=== PATIENT | male | born 1960 | race Caucasian/White ===

== ENCOUNTER 2018-01-25 17:38 | Inpatient (IN) ==
[2018-01-25 18:33] LABS: Basophils # 0.1 K/mcL (0.0-0.2); Basophils % 0.7 %; Eosinophils # 0.1 K/mcL (0.0-0.6); Eosinophils % 0.8 %; Hematocrit 50.9 % (37.5-50.1); Hemoglobin 17.2 g/dL (12.9-16.9); Immature Granulocytes % 1.8 % (0-4); Lymphocytes # 2.1 K/mcL (0.6-4.6); Lymphocytes % 12.1 %; Mean Corpuscular HGB Conc 33.8 g/dL (31.6-35.5); Mean Corpuscular Hemoglobin 31.3 pg (28.0-33.3); Mean Corpuscular Volume 92.5 fL (83.0-100.0); Monocytes % 5.5 %; Neutrophils # 13.7 K/mcL (1.6-8.9); Nucleated Red Blood Cells 0.1 /100 WBC (0); Platelet Count 288 K/mcL (140-400); Red Cell Distribution Width 13.2 % (11.5-14.5); Segmented Neutrophils % 79.1 %
[2018-01-25 18:40] LABS: BUN/Creatinine Ratio 15 (6-26); Blood Urea Nitrogen 9 mg/dL (6-20); Calcium 9.7 mg/dL (8.6-10.3); Carbon Dioxide 26 mEq/L (23-29); Chloride 99 mEq/L (98-107); Glucose 174 mg/dL (70-105); Osmolality,Calculated 277 (280-300); Sodium 132 mEq/L (136-145); eGFR For African Americans > 60 (> 60); eGFR For Non-African Americans > 60 (> 60)
--- NOTE | 2018-01-25 19:32 | Emergency Department Note ---
Disposition Clinical Impression: Cellulitis of left upper extremity, Abscess of left upper extremity Leukocytosis Qualifiers: Leukocytosis type: unspecified Qualified Code(s): D72.829 - Elevated white blood cell count, unspecified Disposition: Admitted As Inpatient Condition: Good Referrals: Martha Harrell CNP [Primary Care Provider] - Shey Longoria [Family Provider] - Forms: ED Satisfaction Letter Time of Disposition: 22:11 General Adult HPI - General Chief complaint: ED Skin/Abscess/Foreign Body Stated complaint: Infection Time Seen by Provider: 01/25/18 19:28 Source: patient Mode of arrival: ambulatory Limitations: no limitations Nursing Notes Reviewed: Yes Vital Signs Reviewed: Yes - History of Present Illness HPI Narrative: Patient is a 57-year-old male with past medical history of COPD, previous right upper extremity necrotizing fasciitis with subsequent surgical intervention. He also admits to a history of IV heroin use. He presents today due to concern for left M impaction. This has been present for several days, pain mainly in the left forearm but denies any pain with movement of his wrist or fingers. Denies any numbness, tingling, weakness. He does admit to injecting heroin in that area. The patient was seen at an outside facility and was given Rocephin. The patient refused to be admitted at that facility and came here for admission. He denies any other allergies, any other intervention. Denies any other fever, abdominal pain, chest pain, shortness of breath. He does admit to nausea but no vomiting. Pain Scale: 9 - Related Data Home Medications Medication Instructions Recorded Confirmed Albuterol Sulfate [Albuterol 2 puff IH Q4H PRN 01/25/18 01/25/18 Inhaler] Atorvastatin Calcium [Lipitor] 20 mg PO HS 01/25/18 Buprenorphine HCl/Naloxone HCl 1 film SL TID 01/25/18 01/25/18 [Suboxone 8 mg-2 mg Sl Film] Canagliflozin [Invokana] 100 mg PO DAILY 01/25/18 01/25/18 Fluticasone/Salmeterol [Advair Hfa 2 puff IH BID 01/25/18 01/25/18 230-21 Mcg Inhaler] Gabapentin [Neurontin] 1,200 mg PO TID 01/25/18 01/25/18 Ibuprofen [Motrin] 800 mg PO Q8H PRN 01/25/18 01/25/18 Insulin ASPART [NovoLOG] 0 unit SQ TIDWM PRN 01/25/18 01/25/18 Insulin Glargine [Lantus] 30 - 65 unit SQ HS 01/25/18 01/25/18 Levothyroxine [Synthroid] 50 mcg PO 0630 01/25/18 01/25/18 Mupirocin [Bactroban Oint] 1 appl TP TID 01/25/18 01/25/18 Sulfamethoxazole/Trimeth DS 1 tab PO BID 01/25/18 01/25/18 [Bactrim Ds] Tiotropium [Spiriva] 18 mcg IH DAILY 01/25/18 01/25/18 Tramadol HCl [Ultram] 50 mg PO QID PRN 01/25/18 01/25/18 Allergies Allergy/AdvReac Type Severity Reaction Status Date / Time No Known Allergies Allergy Verified 01/25/18 17:53 All systems ED: reviewed and negative except as stated. Constitutional: Denies: fever Cardiovascular: Denies: chest pain Respiratory: Denies: cough, dyspnea Gastrointestinal: Reports: nausea. Denies: abdominal pain, vomiting, diarrhea, constipation Genitourinary: Denies: urgency, dysuria, frequency Musculoskeletal: Denies: back pain, neck pain Integumentary: Reports: other Neurological: Denies: weakness, numbness, paresthesias Past Medical History - Past Medical History Attestation: Yes The following information was validated with the patient. Source: patient Medical history: Reports: asthma, COPD, CVA, diabetes, hyperlipidemia, hypertension, myocardial infarction - Social History Smoking Status: Current every day smoker Drug use: Reports: IV Drug Use Physical Exam - General Limitations: no limitations General appearance: alert, in no apparent distress - Head Head exam: atraumatic, normocephalic, normal inspection - Eye Eye exam: Present: normal appearance, PERRL, EOMI - ENT ENT exam: normal exam, normal oropharynx, mucous membranes moist - Neck Neck exam: Present: normal inspection, full ROM, trachea midline - Chest Chest inspection: Present: normal inspection, symmetric chest wall rise - Respiratory Respiratory exam: Present: normal lung sounds bilaterally - Cardiovascular Cardiovascular exam: Present: regular rate, normal rhythm, normal heart sounds - Abdominal Exam Abdominal exam: Present: soft, Non-Tender. Absent: tenderness, distention, guarding, rebound, rigidity - Extremities Exam Extremities exam: Present: full ROM, other (Significant erythema of left forearm from middle forearm to almost elbow on the dorsal aspect of the left forearm. Significant edema proximally 5 x 5 cm on the dorsal aspect of the left forearm concerning for possible abscess.). Absent: pedal edema - Neurological Exam Neurological exam: Present: alert, oriented X3. Absent: motor sensory deficit - Psychiatric Psychiatric exam: Present: normal affect, normal mood - Skin Skin exam: Present: warm, dry, normal color, other (see extremity section above) Course Course Narrative: Patient currently afebrile. The rest of the vitals were within normal limits. Physical exam shows: Significant erythema of left forearm from middle forearm to almost elbow on the dorsal aspect of the left forearm. Significant edema proximally 5 x 5 cm on the dorsal aspect of the left forearm concerning for possible abscess. There is no pain with passive flexion or extension of the left breast, movement of the digits of the left hand. No concern currently for tenosynovitis. Patient has an elevated white blood cell count of 17. Cultures of been drawn. He received Rocephin at outside facility. We will give the patient vancomycin empirically as well here. We will perform CT of the left upper extremity with contrast for further assessment and then admit for further care. 22:00 1. Rim enhancing fluid collection along the proximal to mid forearm along its radial aspect measuring 1.1 x 3.0 x 4.5 cm compatible with abscess. Surrounding soft tissue edema consistent with cellulitis. 2. No acute osseous abnormality. Abscess is fairly deep on clinical exam. Too deep at this time to incise and drain the abscess in the ED. We will admit on vancomycin to hospitalist for further care Upper Extremity CT 01/25/18 20:04 IMPRESSION: 1. Rim enhancing fluid collection along the proximal to mid forearm along its radial aspect measuring 1.1 x 3.0 x 4.5 cm compatible with abscess. Surrounding soft tissue edema consistent with cellulitis. 2. No acute osseous abnormality. D/ / Hugo Armendariz MD / Hugo Armendariz MD Interpreting Provider: Hugo Armendariz MD Vital Signs Temperature 99.1 F 01/25/18 17:47 Pulse Rate 87 01/25/18 17:47 Respiratory Rate 18 01/25/18 17:47 Blood Pressure 0/0 01/25/18 17:47 O2 Sat by Pulse Oximetry 96 01/25/18 17:47 Temperature 99.1 F 01/25/18 17:47 Pulse Rate 87 01/25/18 17:47 Respiratory Rate 18 01/25/18 17:47 Blood Pressure 0/0 01/25/18 17:47 O2 Sat by Pulse Oximetry 96 01/25/18 17:47 Oxygen Delivery Oxygen Delivery Room Air Medical Decision Making - MDM Narrative Medical decision making narrative: Patient currently afebrile. The rest of the vitals were within normal limits. Physical exam shows: Significant erythema of left forearm from middle forearm to almost elbow on the dorsal aspect of the left forearm. Significant edema proximally 5 x 5 cm on the dorsal aspect of the left forearm concerning for possible abscess. There is no pain with passive flexion or extension of the left breast, movement of the digits of the left hand. No concern currently for tenosynovitis. Patient has an elevated white blood cell count of 17. Cultures of been drawn. He received Rocephin at outside facility. We will give the patient vancomycin empirically as well here. We will perform CT of the left upper extremity with contrast for further assessment and then admit for further care. 22:00 1. Rim enhancing fluid collection along the proximal to mid forearm along its radial aspect measuring 1.1 x 3.0 x 4.5 cm compatible with abscess. Surrounding soft tissue edema consistent with cellulitis. 2. No acute osseous abnormality. Abscess is fairly deep on clinical exam. Too deep at this time to incise and drain the abscess in the ED. Recommend surgical consult once admitted. We will admit on vancomycin to hospitalist for further care This documentation is done with the assistance of Dragon dictation. Despite efforts made to ensure accuracy, there may be inaccuracies in all around patternmaker or spelling and typographical errors. I examined this patient and my medical decision-making was reviewed with the Resident Physician. I agree with the documented findings, disposition and treatment plan as described except to the extent set forth below. Patient was seen and evaluated on arrival with Dr. michelle and myself, I agree with his evaluation management plan, supervised the care the patient's stay. Patient presents today with infection on the right arm. He shot up some heroin. And now the arm is swollen. He has no pain in the forearm with flexion extension of the wrist or the elbow. No tenderness with internal and external rotation the elbow. He does have a large area that is indurated, and also spreads with cellulitis of the forearm. Recommend CT the area start him on vancomycin and get labs on him and he will most likely need admission. He is in agreement with this plan. - Medical Records Medical records reviewed: Yes I reviewed the patient's medical records. - Lab Data Lab results reviewed: Yes I reviewed the patient's lab results. Result diagrams: 01/25/18 18:03 01/25/18 18:03 Lab Results 01/25/18 01/25/18 01/25/18 Range/Units 18:03 18:03 18:03 WBC 17.4 H (4.3-11.1) K/mcL RBC 5.50 (4.19-5.50) M/mcL Hgb 17.2 H (12.9-16.9) g/dL Hct 50.9 H (37.5-50.1) % MCV 92.5 (83.0-100.0) fL MCH 31.3 (28.0-33.3) pg MCHC 33.8 (31.6-35.5) g/dL RDW 13.2 (11.5-14.5) % Plt Count 288 (140-400) K/mcL MPV 9.0 L (9.4-12.4) fL Immature Gran % 1.8 (0-4) % Seg Neutrophils % 79.1 % Lymphocytes % 12.1 % Monocytes % 5.5 % Eosinophils % 0.8 % Basophils % 0.7 % Neutrophils # 13.7 H (1.6-8.9) K/mcL Lymphocytes # 2.1 (0.6-4.6) K/mcL Monocytes # 1.0 (0.0-1.3) K/mcL Eosinophils # 0.1 (0.0-0.6) K/mcL Basophils # 0.1 (0.0-0.2) K/mcL Nucleated RBCs/100 WBC 0.1 H (0) /100 WBC Sodium 132 L (136-145) mEq/L Potassium 4.0 (3.5-5.1) mEq/L Chloride 99 (98-107) mEq/L Carbon Dioxide 26 (23-29) mEq/L BUN 9 (6-20) mg/dL Creatinine 0.59 L (0.70-1.30) mg/dL Est GFR ( Amer) > 60 (> 60) Est GFR (Non-Af Amer) > 60 (> 60) BUN/Creatinine Ratio 15 (6-26) Glucose 174 H (70-105) mg/dL Calculated Osmolality 277 L (280-300) Lactic Acid 1.2 (0.5-2.2) mmol/L Calcium 9.7 (8.6-10.3) mg/dL - Radiology Data Radiology results reviewed: Yes I reviewed the patient's radiology results. Upper Extremity CT 01/25/18 20:04 IMPRESSION: 1. Rim enhancing fluid collection along the proximal to mid forearm along its radial aspect measuring 1.1 x 3.0 x 4.5 cm compatible with abscess. Surrounding soft tissue edema consistent with cellulitis. 2. No acute osseous abnormality. D/ / Hugo Armendariz MD / Hugo Armendariz MD Interpreting Provider: Hugo Armendariz MD S.Nina.Fidencio - Romeo Situation: Demographics, MOA Background: Presenting Complaint, Relevant PMH, Meds, & Allergies Assessment: Vital Signs, Course and respsone to treatment, Exam Concerns, Patient/Family Expectation, Pertinant Lab Results, Outstanding Labs Recommendation: Barrier(s) to disposition, Recommendation based on pending studies, treatments, or consults S.B.APedro Report Given to: Dr. sushma Walters Repor Time: 22:11
[2018-01-25] MEDS ORDERED: MetroNIDAZOLE 500 MG/100 ML 500 MG/100 ML BAG IVPB ONE (20:04)
[2018-01-25] MEDS ORDERED: Ondansetron ODT 4 MG TAB.RAPDIS SL ONE (20:09)
[2018-01-25] MEDS ORDERED: Naloxone 0.4 MG/ML INJ IVP PRN (22:30)
[2018-01-25] MEDS ORDERED: *HR* Dextrose 50 % in Water (Syg) 50 ML SYRINGE IVP PRN (22:34)
[2018-01-25] MEDS ORDERED: Dextrose Gel 15 GM/37.5 ML TUBE PO PRN ×2 (22:34)
[2018-01-25] MEDS ORDERED: Ipratropium/Albuterol Neb 3 ML IH PRN (22:34)
[2018-01-25] MEDS ORDERED: D5% in Water 1,000 ML IVC PRN (22:34)
--- NOTE | 2018-01-25 22:39 | Internal Med History&Physical ---
Date of Encounter: 01/25/18 Time of Encounter: 22:37 Assessment and Plan (1) Abscess of left upper extremity Current visit: Yes Status: Acute IV clindamycin Blood cultures Consult surgery in the morning Nothing by mouth pending surgery evaluation (2) Cellulitis of left upper extremity Current visit: Yes Status: Acute IV clindamycin (3) COPD exacerbation Current visit: Yes Status: Acute IV steroids, IV azithromycin, nebulizer treatment Check chest x-ray 2 views in the morning (4) IVDU (intravenous drug user) Current visit: Yes Status: Acute Education provided Is on Suboxone 8 mg 3 times a day at home (5) Neuropathy Current visit: Yes Status: Acute on high dose neurontin (6) DMII (diabetes mellitus, type 2) Current visit: Yes Status: Acute continue insulin Qualifiers: Diabetes mellitus superintendent terminal insulin use: with superintendent terminal use Qualified Code( s): E11.9 - Type 2 diabetes mellitus without complications; Z79.4 - superintendent terminal ( current) use of insulin; Z79.4 - superintendent terminal (current) use of insulin; Z79.4 - jail (current) use of insulin; Z79.4 - superintendent terminal (current) use of insulin Internal Medicine - H&P: HPI Chief complaint: Left forearm pain and swelling History of present illness: Mr. Antoine is a 57 year old male who is IV drug user, on Suboxone at home 8 mg 3 times a day who presents with a left forearm abscess, cellulitis and was found to be in COPD exacerbation - baseline is supposed to use 4 L oxygen. He last used IV heroin proximally 4-5 days ago. Shortly after he developed swelling, increasing pain, 8 out of 10 along his left forearm with subjective fevers and chills. It was reported that he was at an outside hospital received IV Rocephin and decided to sign out before coming to the for treatment. Symptoms did not improve with time and had worsened leading to admission. He appears to have a history of prior abscesses along his right forearm status post surgery with significant scar and deformity. CT/CT UE LT w con IMPRESSION: 1. Rim enhancing fluid collection along the proximal to mid forearm along its radial aspect measuring 1.1 x 3.0 x 4.5 cm compatible with abscess. Surrounding soft tissue edema consistent with cellulitis. 2. No acute osseous abnormality. Past Med Surg Social Fam HX - Past Medical History Medical history: asthma, COPD, CVA, diabetes, hyperlipidemia, hypertension, myocardial infarction - Past Surgical History Surgical History: other (Prior surgery of the arm) - Social History Smoking Status: Current every day smoker Drug use: IV Drug Use Internal Medicine - H&P: Meds Albuterol Sulfate [Albuterol Inhaler] 2 puff IH Q4H PRN 01/25/18 [History] Atorvastatin Calcium [Lipitor] 20 mg PO HS 01/25/18 [History] Buprenorphine HCl/Naloxone HCl [Suboxone 8 mg-2 mg Sl Film] 1 film SL TID [History] Canagliflozin [Invokana] 100 mg PO DAILY 01/25/18 [History] Fluticasone/Salmeterol [Advair Hfa 230-21 Mcg Inhaler] 2 puff IH BID 01/25/18 [ History] Gabapentin [Neurontin] 1,200 mg PO TID 01/25/18 [History] Ibuprofen [Motrin] 800 mg PO Q8H PRN 01/25/18 [History] Insulin ASPART [NovoLOG] 0 unit SQ TIDWM PRN 01/25/18 [History] Insulin Glargine [Lantus] 30 - 65 unit SQ HS 01/25/18 [History] Levothyroxine [Synthroid] 50 mcg PO 0630 01/25/18 [History] Mupirocin [Bactroban Oint] 1 appl TP TID 01/25/18 [History] Sulfamethoxazole/Trimeth DS [Bactrim Ds] 1 tab PO BID 01/25/18 [History] Tiotropium [Spiriva] 18 mcg IH DAILY 01/25/18 [History] Tramadol HCl [Ultram] 50 mg PO QID PRN 01/25/18 [History] 3 Allergy/AdvReac Type Severity Reaction Status Date / Time No Known Allergies Allergy Verified 01/25/18 17:53 All Systems PM: A 10-system review of systems was performed and is negative for pertinent findings except as documented above in the HPI. Review of systems: ROS 14 point review of systems reviewed as best as possible given presentation. Pertinent positive or negative as per HPI or otherwise reviewed as negative - Constitutional Vitals: Temp Pulse Resp BP Pulse Ox 99.1 F 87 18 0/0 96 01/25/18 17:47 03/20/18 17:47 01/25/18 17:47 01/25/18 17:47 01/25/18 17:47 Exam: General - AAO x 3 Psych - Appropriate affect/speech. No agitation Eyes - AUNDREA. Eye lids intact. No scleral icterus Neuro - No gross peripheral or central neuro deficits on inspection Heart - Sinus. RRR. S1 and S2 present. No added HS/murmurs appreciated. No elevated JVD appreciated. Lung - Adequate air entry b/l, diffuse wheezes appreciated, no crackles GI - Soft, non-tender. No hepatosplenomegaly/ascites. BS+ - No CVA/suprapubic tenderness or palpable bladder distension Skin - left forearm erythema with warmth and swelling MSK - right arm surgical scar Internal Med - H&P Results - Labs CBC & Chem 7: 01/25/18 18:03 01/25/18 18:03
[2018-01-25] MEDS ORDERED: *HR* Buprenorphine HCl 2 MG SUBLINGUAL TABLET SL SCH (22:45)
[2018-01-25] MEDS ORDERED: Nicotine 21 MG PATCH.TD24 TD SCH (23:00)
[2018-01-25] MEDS: Ipratropium/Albuterol Neb 3 ML IH SCH (23:41)
[2018-01-26] MEDS: MethylPREDNISolone 40 MG/ML VIAL IVP SCH ×5 (00:05→20:41)
[2018-01-26] MEDS: 0.9 % Sodium Chloride 1,000 ML IVC SCH ×2 (00:07→11:47)
[2018-01-26] MEDS: *HR* Buprenorphine HCl 8 MG TAB.SUBL SL SCH ×4 (00:33→20:41)
[2018-01-26] MEDS ORDERED: traZODone 50 MG TABLET PO PRN (02:47)
[2018-01-26] MEDS: Ipratropium/Albuterol Neb 3 ML IH SCH ×3 (04:31→16:16)
[2018-01-26] MEDS: Clindamycin 600 MG/50 ML 600 MG/50 ML IV.SOLN IVPB SCH ×3 (04:43→20:40)
[2018-01-26 05:01] LABS: Basophils # 0.1 K/mcL (0.0-0.2); Basophils % 0.6 %; Eosinophils % 0.1 %; Hematocrit 46.3 % (37.5-50.1); Immature Granulocytes % 1.9 % (0-4); Lymphocytes # 1.1 K/mcL (0.6-4.6); Lymphocytes % 7.4 %; Mean Corpuscular HGB Conc 33.7 g/dL (31.6-35.5); Mean Corpuscular Hemoglobin 31.3 pg (28.0-33.3); Mean Corpuscular Volume 92.8 fL (83.0-100.0); Mean Platelet Volume 9.3 fL (9.4-12.4); Monocytes # 0.1 K/mcL (0.0-1.3); Monocytes % 0.8 %; Neutrophils # 12.9 K/mcL (1.6-8.9); Platelet Count 239 K/mcL (140-400); Red Blood Count 4.99 M/mcL (4.19-5.50); Red Cell Distribution Width 13.1 % (11.5-14.5); Segmented Neutrophils % 89.2 %
[2018-01-26 05:02] LABS: INR 1.1; Prothrombin Time 11.7 Seconds (9.4-12.1)
[2018-01-26 05:04] LABS: Activated Partial Thrombo Time 30.3 Seconds (26.0-36.0)
[2018-01-26 05:09] LABS: Hemoglobin 15.6 g/dL (12.9-16.9)
[2018-01-26 05:18] LABS: BUN/Creatinine Ratio 19 (6-26); Blood Urea Nitrogen 12 mg/dL (6-20); Calcium 9.2 mg/dL (8.6-10.3); Carbon Dioxide 23 mEq/L (23-29); Chloride 102 mEq/L (98-107); Glucose 224 mg/dL (70-105); Osmolality,Calculated 279 (280-300); Potassium 4.1 mEq/L (3.5-5.1); Sodium 131 mEq/L (136-145); eGFR For African Americans > 60 (> 60); eGFR For Non-African Americans > 60 (> 60)
[2018-01-26] MEDS ORDERED: *HR* Enoxaparin 40 MG/0.4 ML SYRINGE SQ SCH (06:00)
[2018-01-26] MEDS: Ibuprofen 400 MG TABLET PO PRN ×2 (06:44→15:09)
[2018-01-26] MEDS: Insulin LISPRO 300 UNITS/3 ML VIAL SQ SCH ×3 (08:45→17:00)
[2018-01-26] MEDS: Gabapentin 400 MG CAPSULE PO SCH ×3 (08:45→20:41)
[2018-01-26] MEDS ORDERED: (Canagliflozin [Invokana] 100 MG) PO SCH (09:00)
[2018-01-26] MEDS ORDERED: Tiotropium 18 MCG inhalation IH SCH (09:00)
[2018-01-26] MEDS ORDERED: Nicotine 21 MG PATCH.TD24 TD SCH (09:00)
[2018-01-26] MEDS ORDERED: Budesonide/Formoterol 160/4.5 MDI IH SCH (10:00)
--- NOTE | 2018-01-26 14:10 | Internal Med Progress Note ---
Date of Encounter: 01/26/18 Time of Encounter: 14:08 - Assessment and plan (1) Cellulitis of left upper extremity Current Visit: Yes Status: Acute Assessment and plan: acute left forearm cellulitis received 1 dose of IV vancomycin in the ER continue IV clindamycin day 2 CT reported: 1. Rim enhancing fluid collection along the proximal to mid forearm along its radial aspect measuring 1.1 x 3.0 x 4.5 cm compatible with abscess. Surrounding soft tissue edema consistent with cellulitis. Apparently Dr Cole saw the patient in the morning and mentioned that it was just induration and there was nothing drainable (2) Tobacco abuse Current Visit: Yes Status: Acute Assessment and plan: Smoking cessation counseling, nicotine patch (3) COPD exacerbation Current Visit: Yes Status: Acute Assessment and plan: Acute COPD exacerbation likely secondary to acute bacterial bronchitis Continue Solu-Medrol and azithromycin (4) DMII (diabetes mellitus, type 2) Current Visit: Yes Status: Acute Assessment and plan: Sliding scale Qualifiers: Diabetes mellitus fpc insulin use: with fpc use Qualified Code( s): E11.9 - Type 2 diabetes mellitus without complications; Z79.4 - terminal press operator ( current) use of insulin; Z79.4 - terminal press operator (current) use of insulin; Z79.4 - terminal press operator (current) use of insulin; Z79.4 - longterm (current) use of insulin (5) IVDU (intravenous drug user) Current Visit: Yes Status: Acute Assessment and plan: Hx of IVDA (6) Leukocytosis Current Visit: Yes Status: Acute Qualifiers: Leukocytosis type: unspecified Qualified Code(s): D72.829 - Elevated white blood cell count, unspecified (7) Neuropathy Current Visit: Yes Status: Acute - Subjective Interval history: compaining of less pain on his left forearm, still SOB, no CP , no fever, no abdominal pain or dysuria - Constitutional Vitals: Temp Pulse Resp BP Pulse Ox 97.4 F L 80 18 119/73 93 01/26/18 11:16 01/26/18 11:16 01/26/18 11:16 01/26/18 11:16 01/26/18 11:16 General appearance: Present: A&O X 3 - Head Head exam: Present: atraumatic, normocephalic - Eye Eye exam: Present: PERRL, conjuntiva pink, sclera anicteric Pupils: Present: PERRL - Neck Neck exam general surgery: Present: supple, trachea midline. Absent: lymphadenopathy - Respiratory Respiratory exam: Present: CTAB, wheezes (diffuse). Absent: accessory muscle use, rales, rhonchi - Cardiovascular Cardiovascular exam: Present: RRR, +S1, +S2. Absent: diastolic murmur, gallop, rubs, systolic murmur - GI/Abdominal GI/Abdominal exam: Present: normal bowel sounds, soft, no peritoneal signs. Absent: distended, tenderness - Extremities Exam Extremities exam: Present: warm, radial pulses palpable and symmetrical. Absent : calf tenderness, cyanotic, pedal edema - Neurological Exam Neurological exam: Present: CN II-XII intact, oriented X3, no focal deficits. Absent: pronater drift, facial droop, speech deficit - Skin Skin exam: Present: dry. Absent: intact Additional comments: left forearm less erythematous, less tender, warm, large area 10 x6 cm right antecubital chronic ulcer <2 cm Internal Medicine: Result - Labs CBC & Chem 7: 01/26/18 04:21 01/26/18 04:21 Labs: Short CBC 01/26/18 Range/Units 04:21 WBC 14.5 H (4.3-11.1) K/mcL Hgb 15.6 D (12.9-16.9) g/dL Hct 46.3 (37.5-50.1) % Plt Count 239 (140-400) K/mcL Neutrophils # 12.9 H (1.6-8.9) K/mcL BMP 01/26/18 04:21 Sodium 131 L Potassium 4.1 Chloride 102 Carbon Dioxide 23 BUN 12 Creatinine 0.62 L Glucose 224 H Calcium 9.2 - ABG Interpretation ABG results: PT/INR, D-dimer PT 11.7 Seconds (9.4-12.1) 01/26/18 04:21 - Impressions Impressions Chest X-Ray 01/26/18 09:00 IMPRESSION: No acute cardiopulmonary process. D/ / 01/26/2018 09:14:38 Arjun Jeronimo MD / johnnie Interpreting Provider: Arjun Jeronimo MD Consult Discharge Plan - Plan Referrals: Martha Harrell, [facility] [Primary Care Provider] -
[2018-01-26] MEDS ORDERED: Benzonatate 100 MG CAPSULE PO PRN (14:23)
[2018-01-26] MEDS ORDERED: Insulin LISPRO 300 UNITS/3 ML VIAL SQ SCH ×3 (18:08→21:00)
[2018-01-26 20:24] VITALS: BP 108/69
[2018-01-26] MEDS ORDERED: NON-FORMULARY MEDICATION 1 EACH EACH (Insulin Glargine [Lantus] 30 UNIT) SQ SCH (21:00)
[2018-01-26] MEDS ORDERED: Insulin DETEMIR 100 UNIT/ML X5UNITS SQ SCH (21:00)
--- NOTE | 2018-01-26 21:48 | Event Note ---
Date of Encounter: 01/26/18 Time of Encounter: 21:45 Patient signed out AMA. He was informed that he would benefit from staying and receiving additional IV ATB tx d/t his abscess and associated IVDU. He reports that he needs to sign out d/t an urgent family matter. He was informed that resolution of his infection is crucial and that delay in treatment could lead to further infection, sepsis, loss of limb and/or . He continued to refuse to stay and signed out AMA. He was given two prescriptions upon leaving. One for Oral Clindamycin and the other for Bactrim DS. He was informed that should his condition worsen that he should return to [facility] for further treatment.
--- NOTE | 2018-01-27 16:37 | Discharge Summary ---
Orders not resulted at time of discharge: Pending orders 01/25/18 18:03 Culture,Blood,Additional [BC] Routine 01/25/18 23:16 Culture,Blood [BC] Routine Date of Encounter: 01/26/18 Time of Encounter: 21:45 - Discharge Diagnosis (1) Cellulitis of left upper extremity Priority: Primary Status: Acute Comments: acute left forearm cellulitis received 1 dose of IV vancomycin in the ER continue IV clindamycin day 2 CT reported: 1. Rim enhancing fluid collection along the proximal to mid forearm along its radial aspect measuring 1.1 x 3.0 x 4.5 cm compatible with abscess. Surrounding soft tissue edema consistent with cellulitis. 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 Antoine is a 57 year old male who is IV drug user, on Suboxone at home 8 mg 3 times a day who presented with a left forearm abscess, cellulitis and was found to be in COPD exacerbation - baseline is supposed to use 4 L oxygen. He last used IV heroin proximally 4-5 days ago. Shortly after he developed swelling, increasing pain, 8 out of 10 along his left forearm with subjective fevers and chills. It was reported that he was at an outside hospital received IV Rocephin and decided to sign out before coming to the for treatment. Symptoms did not improve with time and had worsened leading to admission. CT/CT UE LT w con IMPRESSION: 1. Rim enhancing fluid collection along the proximal to mid forearm along its radial aspect measuring 1.1 x 3.0 x 4.5 cm compatible with abscess. Surrounding soft tissue edema consistent with cellulitis. 2. No acute osseous abnormality. The patient was engaged by Dakotah Hansen NP who worte the following note: "Patient signed out AMA. He was informed that he would benefit from staying and receiving additional IV ATB tx d/t his abscess and associated IVDU. He reported that he needs to sign out d/t an urgent family matter. He was informed that resolution of his infection is crucial and that delay in treatment could lead to further infection, sepsis, loss of limb and/or . He continued to refuse to stay and signed out AMA. He was given two prescriptions upon leaving. One for Oral Clindamycin and the other for Bactrim DS. He was informed that should his condition worsen that he should return to [facility] for further treatment." - Time Spent with Patient Total time spent providing and/or coordinating discharge services: Less than 30 minutes - Discharge Medications Prescriptions: Clindamycin [Cleocin] 300 mg PO Q6HR 10 Days #40 capsule Sulfamethoxazole/Trimeth DS [Bactrim DS] 1 each PO BID 10 Days #20 tablet Home Medications: Albuterol Sulfate [Albuterol Inhaler] 2 puff IH Q4H PRN 01/25/18 [History] Atorvastatin Calcium [Lipitor] 20 mg PO HS 01/25/18 [History] Buprenorphine HCl/Naloxone HCl [Suboxone 8 mg-2 mg Sl Film] 1 film SL TID [History] Canagliflozin [Invokana] 100 mg PO DAILY 01/25/18 [History] Fluticasone/Salmeterol [Advair Hfa 230-21 Mcg Inhaler] 2 puff IH BID 01/25/18 [ History] Gabapentin [Neurontin] 1,200 mg PO TID 01/25/18 [History] Ibuprofen [Motrin] 800 mg PO Q8H PRN 01/25/18 [History] Insulin ASPART [NovoLOG] 0 unit SQ TIDWM PRN 01/25/18 [History] Insulin Glargine [Lantus] 30 - 65 unit SQ HS 01/25/18 [History] Levothyroxine [Synthroid] 50 mcg PO 0630 01/25/18 [History] Mupirocin [Bactroban Oint] 1 appl TP TID 01/25/18 [History] Sulfamethoxazole/Trimeth DS [Bactrim Ds] 1 tab PO BID 01/25/18 [History] Tiotropium [Spiriva] 18 mcg IH DAILY 01/25/18 [History] Tramadol HCl [Ultram] 50 mg PO QID PRN 01/25/18 [History] Clindamycin [Cleocin] 300 mg PO Q6HR 10 Days #40 capsule 01/26/18 [Rx] Sulfamethoxazole/Trimeth DS [Bactrim DS] 1 each PO BID 10 Days #20 tablet [Rx] Allergies/Adverse Reactions: 3 Allergy/AdvReac Type Severity Reaction Status Date / Time No Known Allergies Allergy Verified 01/25/18 17:53 Date of admission: 01/25/18 22:30 Primary care physician: RODNEY Zaldivar Consults: 01/25/18 22:32 Consult to Surgery [CONS] Routine Consulting Provider: Surgery [facility] Reason for Consult: abscess Call Completed: No - Constitutional Vitals: Temp Pulse Resp BP Pulse Ox 98.0 F 86 16 108/69 95 01/26/18 20:22 01/26/18 20:22 01/26/18 20:22 01/26/18 20:22 01/26/18 20:22 General appearance: Present: A&O X 3 Exam: - Head Head exam: Present: atraumatic, normocephalic - Eye Eye exam: Present: PERRL, conjuntiva pink, sclera anicteric Pupils: Present: PERRL - Neck Neck exam general surgery: Present: supple, trachea midline. Absent: lymphadenopathy - Respiratory Respiratory exam: Present: CTAB, wheezes (diffuse). Absent: accessory muscle use, rales, rhonchi - Cardiovascular Cardiovascular exam: Present: RRR, +S1, +S2. Absent: diastolic murmur, gallop, rubs, systolic murmur - GI/Abdominal GI/Abdominal exam: Present: normal bowel sounds, soft, no peritoneal signs. Absent: distended, tenderness - Extremities Exam Extremities exam: Present: warm, radial pulses palpable and symmetrical. Absent : calf tenderness, cyanotic, pedal edema - Neurological Exam Neurological exam: Present: CN II-XII intact, oriented X3, no focal deficits. Absent: pronater drift, facial droop, speech deficit - Skin Skin exam: Present: dry. Absent: intact Additional comments: left forearm less erythematous, less tender, warm, large area 10 x6 cm right antecubital chronic ulcer <2 cm - Patient Status Disposition: Left Against Medical Advice Condition: Good - Discharge Instructions Follow Up With: Martha Harrell, [employer] [Primary Care Provider] -
== END 2018-01-26 21:44 | disposition left against medical advice (07) | DRG 603 ==
LOC: 3ANU 17:38 → EMEROO 17:38 → 3ANU 23:20
PROVIDERS: ADMIT Internal Medicine; ATTEND Internal Medicine